=== PATIENT | male | born 1950 | race Caucasian/White ===

== ENCOUNTER 2023-10-05 13:30 | Emergency (ER) | payer OTHER, BC ==
[~2023-10-05] VITALS: Ht 170.2 cm; Wt 67.0 kg
[2023-10-05] MEDS ORDERED: LIPITOR20 MG PO (13:46)
[2023-10-05] MEDS ORDERED: VAZALORE81 MG PO (13:46)
[2023-10-05] MEDS ORDERED: ARICEPT5 MG PO (13:47)
[2023-10-05] MEDS ORDERED: CLOBETASOL PROP15 G2 TOP (13:47)
[2023-10-05] MEDS ORDERED: FEOSOL325 MG PO (13:47)
[2023-10-05] MEDS ORDERED: LANTUS SOL100 UNIT/1 SUB-Q (13:48)
[2023-10-05] MEDS ORDERED: LACOSAMIDE150 MG PO (13:48)
[2023-10-05] MEDS ORDERED: KETOCONAZOLE120 ML TOP (13:48)
[2023-10-05] MEDS ORDERED: ATIVAN0.5 MG PO (13:48)
[2023-10-05] MEDS ORDERED: MULTIVITAMINS1 EAC8 PO (13:49)
[2023-10-05] MEDS ORDERED: COZAAR50 MG PO (13:49)
[2023-10-05] MEDS ORDERED: NOVOLOG100 UNIT/2 SQ (13:49)
[2023-10-05] MEDS ORDERED: KAPSPARGO SPRIN25 MG PO (13:49)
[2023-10-05] MEDS ORDERED: QUETIAPINE FUMA25 MG PO (13:50)
[2023-10-05] MEDS ORDERED: TRAZODONE HCL50 MG PO (13:50)
[2023-10-05] MEDS ORDERED: FLOMAX0.4 MG PO (13:50)
[2023-10-05 14:42] LABS: BASOPHILS 0.3 % (0-2); EOSINOPHILS 3.1 % (0-6); HEMATOCRIT 36.7 % (35.0-50.0); HEMOGLOBIN 12.5 g/dL (12.0-18.0); LYMPHOCYTES 19.3 % (24-44); MCH 29.9 (27-36); MCV 87.9 fl (81-99); MONOCYTES 6.9 % (0-12); NEUTROPHILS 70.4 % (39-80); PLATELET COUNT 208 K/uL (140-440); RBC 4.17 M/ul (4.3-5.7)
[2023-10-05 14:59] LABS: ALBUMIN/GLOBULIN RATIO 1.11 (1.1-2.4); ANION GAP 12.3 (7-21); BILIRUBIN, TOTAL 0.6 ng/dL (0.2-1.0); BUN/CREATININE RATIO 26.76 (6.0-28.6); CALCIUM 9.1 mg/dL (8.5-10.1); CREATININE, SERUM 1.42 mg/dL (0.70-1.30); POTASSIUM 4.3 mmol/L (3.5-5.1); PROTEIN, TOTAL 7.6 g/dL (6.4-8.2)
[2023-10-05 15:40] LABS: BILIRUBIN, URINE NEGATIVE (negative); BLOOD/HGB, URINE SMALL (Negative); KETONE, URINE NEGATIVE (Negative); LEUK ESTERASE, URINE NEGATIVE (negative); NITRITE, URINE NEGATIVE (negative)
[2023-10-05 15:49] LABS: BACTERIA, URINE NONE SEEN /hpf (negative); CASTS, URINE NONE SEEN \\lpf; CRYSTALS, URINE NONE SEEN (0-1+); EPITHELIAL CELLS, URINE 0 /lpf (0-1+); WHITE BLOOD CELLS, URINE 0-1 /HPF (0-5)
[2023-10-05 15:50] LABS: COLLECTION TYPE, URINE CLEAN CATCH; REFLEX CULTURE, URINE No (No)
[2023-10-05 16:09] VITALS: BP 151/64
== END 2023-10-05 16:11 | disposition home or self-care (01) ==
LOC: ED 13:30
PROVIDERS: Emergency Medicine
DX: Z04.3 Encounter for examination and observation following other accident (principal); E11.9 Type 2 diabetes mellitus without complications; Z87.820 Personal history of traumatic brain injury; Z79.82 Long term (current) use of aspirin; Z79.4 Long term (current) use of insulin; Z79.899 Other long term (current) drug therapy
CPT/HCPCS: 36415; 70450; 80053; 81001; 83735; 85025; 99285-25